=== PATIENT | female | born 1930 | race Caucasian/White ===

== ENCOUNTER 2017-02-13 13:47 | Inpatient (IN) | payer OTHER, BC ==
[~2017-02-13] VITALS: Ht 162.6 cm; Wt 59.0 kg
--- NOTE | ~2017-02-13 | EKG ---
[address] [employer] [place] [address] ELECTROCARDIOGRAM REPORT Name: KERVIN MANNING Room #: 426-P ADM IN M.R.#: [id number] Admission: 02/13/17 Attend Phys: Fei Wellington MD Discharge: Date of : 30 Report #: [id number] THIS REPORT FOR: //name// [facility] ED Test Date: 2017-02-13 Test Time: 14:10:13 Pat Name: KERVIN MANNING Department: Room: [facility] Gender: F Second Cutter: ELSA : 1930 Requested By: Rocío Tavarez Order Number: [id number] MD: Nathan Burrell Measurements Intervals [place] Rate: 89 P: 67 IA: 154 QRS: 43 QRSD: 93 T: 62 QT: 390 QTc: 475 Interpretive Statements Sinus rhythm Compared to ECG 03/25/2013 12:54:30 No significant changes Electronically Signed On 02-14-2017 9:22:23 CDT by Nathan Burrell [email or web address] <ELECTRONICALLY SIGNED> By: Nathan Burrell MD, [facility] 02/14/17 0922 D: [id number] Nathan Burrell MD, FACC /EPI
--- NOTE | ~2017-02-13 | 2DMMODE ---
[facility] [address] [place] [address] 2 D/M-MODE ECHOCARDIOGRAM Name: KERVIN MANNING Room #: 426-P [facility] IN .R.#: [id number] Admission: 02/13/17 Attend Phys: Fei Wellington MD Discharge: Date of : 30 Date of Service: 02/15/17 1235 Report #: [id number] THIS REPORT FOR: //name// APPROVED REPORT Study performed: 02/15/2017 10:44:23 EXAM: Comprehensive 2D, Doppler, and color-flow Echocardiogram Patient Location: Echo lab Room #: [facility] Blood Pressure: 137/58 mmHg HR: 78 bpm Rhythm: NSR Other Information Study Quality: Adequate Indications CVA/TIA Hx: HTN, HLP Echo Enhancing Agent Indication: Rule out Shunt Agent/Amount Used: Agitated Saline cc 2D Dimensions RVDd: 28.54 mm LVEF(%): 68.55 (>50%) IVSd: 10.01 (7-11mm) LVOT Diam: 18.04 (18-24mm) LVDd: 41.31 mm PWd: 8.99 (7-11mm) Ascending Ao: 30.27 (22-36mm) LVDs: 25.63 (25-40mm) Aortic Root: 31.32 mm Davis's LVEF: 68.55 % Volumes Left Atrial Volume (Systole) Single Plane 4CH: 20.15 mL Single Plane 2CH: 18.74 mL LA ESV Index: 16.00 mL/m2 Aortic Valve AoV Peak Ezio.: 1.35 m/s AO Peak Gr.: 7.25 mmHg LVOT Max P.97 mmHg [facility] [address] [place] [address] 2 D/M-MODE ECHOCARDIOGRAM Name: KERVIN MANNING Room #: 426-[facility] IN [facility].#: [id number] Admission: 02/13/17 Attend Phys: Fei Wellington MD Discharge: Date of : 30 Date of Service: 02/15/17 1235 Report #: [id number] LVOT Max V: 1.12 m/s Mitral Valve E/A Ratio: 0.8 MV Decel. Time: 203.36 ms MV E Max Ezio.: 0.84 m/s MV A Ezio.: 1.04 m/s MV PHT: 58.97 ms Pulmonary Valve PV Peak Ezio.: 0.75 m/s PV Peak Gr.: 2.23 mmHg Pulmonary Vein P Vein S: 66.9 m/s P Vein D: 43.2 m/s Tricuspid Valve TR Peak Ezio.: 2.46 m/s RAP Estimate: 5.00 mmHg TR Peak Gr.: 24.17 mmHg RVSP: 29.00 mmHg Left Ventricle The left ventricle is normal size. There is normal LV segmental wall motion. There is normal left ventricular wall thickness. Left ventricular systolic function is normal. LVEF is 55-60%. Grade I - abnormal relaxation pattern. Right Ventricle The right ventricle is normal size. The right ventricular systolic function is normal. Atria The left atrium size is normal. Injection of bubbles documented no interatrial shunt. The right atrium size is normal. Aortic Valve Aortic valve leaflets are mildly thickened. Trace aortic regurgitation. There is no aortic valvular stenosis. Mitral Valve Mitral valve leaflets are mildly thickened. Mild mitral regurgitation. Tricuspid Valve The tricuspid valve is normal in structure. There is mild tricuspid regurgitation. The right atrial pressure is estimated at 5 mmHg. Estimated PAP is 29mmHg. [facility] [address] [place] [address] 2 D/M-MODE ECHOCARDIOGRAM Name: KERVIN MANNING Room #: 426-P [facility] IN ..#: [id number] Admission: 02/13/17 Attend Phys: Fei Wellington MD Discharge: Date of : 30 Date of Service: 02/15/17 1235 Report #: [id number] Pulmonic Valve The pulmonary valve is normal in structure. Mild pulmonic regurgitation. Great Vessels The aortic root is normal in size. The ascending aorta is normal in size. IVC is normal in size and collapses >50% with inspiration. Pericardium There is no pericardial effusion. <Conclusion> The left ventricle is normal size. LVEF is 55-60%. Aortic valve leaflets are mildly thickened. Trace aortic regurgitation. Mitral valve leaflets are mildly thickened. Mild mitral regurgitation. The tricuspid valve is normal in structure. There is mild tricuspid regurgitation. The right atrial pressure is estimated at 5 mmHg. Estimated PAP is 29mmHg. The pulmonary valve is normal in structure. Mild pulmonic regurgitation. <ELECTRONICALLY SIGNED> By: Ranjit Vargas MD 02/15/17 1235 1235 1235 Ranjit Vargas MD /INF
[~2017-02-13 13:47] MED LIST: ACETAMINOPHEN325 M1 PO; HYDROCHLOROTH12.5 MG; HYDROCHLOROTHIA25 M1 PO; LIPITOR20 MG PO; LOTREL 10-20 M1 EACH; LOTREL 5-20 MG1 EACH PO; MECLIZINE HCL25 M1 PO; NORVASC 5 MG TAB5 MG PO; VITAMIN D 5050000 I1 PO
[2017-02-13 13:48] VITALS: BP 178/78
[2017-02-13] MEDS ORDERED: ALEVE220 MG PO (13:59)
[2017-02-13] MEDS ORDERED: BYSTOLIC10 MG PO (13:59)
[2017-02-13 14:13] LABS: ABSOLUTE NEUTROPHILS 5.6 thou/uL (1.4-8.2); BASOPHILS 0.4 % (0.0-2.0); EOSINOPHILS 1.8 % (0.0-3.0); HEMATOCRIT 43.2 % (37.0-47.0); LYMPHOCYTES 36.7 % (24.0-44.0); MCH 30.7 pg (26.0-34.0); MCHC 34.8 g/dL (28.0-37.0); MCV 88.3 fL (80.0-100.0); MONOCYTES 5.1 % (1.0-8.0); PLATELET COUNT 292 thou/uL (150-400); RDW 13.7 % (10.5-14.5); WBC 10.1 thou/uL (4.0-11.0)
[2017-02-13 14:16] LABS: MANUAL DIFF NO
[2017-02-13 14:22] LABS: CALCIUM 8.6 mg/dL (8.5-10.1); CREATININE 0.8 mg/dL (0.6-1.0); POTASSIUM 3.7 mmol/L (3.5-5.1)
[2017-02-13 14:31] LABS: URINE BILIRUBIN NEGATIVE (Negative); URINE BLOOD TRACE (Negative); URINE COLOR YELLOW; URINE GLUCOSE-RANDOM* NEGATIVE (Negative); URINE KETONES NEGATIVE (Negative); URINE NITRITE NEGATIVE (Negative); URINE PROTEIN (DIPSTICK) NEGATIVE (Negative); URINE UROBILINOGEN 0.2 E.U./dl (0.2-1.0)
[2017-02-13 20:00] VITALS: BP 132/52
[2017-02-13 20:08] LABS: CHOLESTEROL 202 mg/dL (<200); HDL CHOLESTEROL 64 mg/dL (>40); LDL CHOLESTEROL 118 mg/dL (<100); TC:HDL 3.2 Ratio (Not establshd); TRIGLYCERIDE 103 mg/dL (<150); VLDL 21 mg/dL (<40)
[2017-02-14] VITALS (7 sets, daily range): BP systolic 118–171; BP diastolic 38–98
[2017-02-14 05:44] LABS: HEMATOCRIT 37.9 % (37.0-47.0); HEMOGLOBIN 12.9 gm/dL (12.0-15.0); MCH 29.9 pg (26.0-34.0); MCV 88.1 fL (80.0-100.0); RBC 4.3 mil/uL (4.20-5.00); RDW 13.7 % (10.5-14.5); WBC 9.2 thou/uL (4.0-11.0)
[2017-02-14 05:54] LABS: CALCIUM 8.2 mg/dL (8.5-10.1); CREATININE 0.8 mg/dL (0.6-1.0); POTASSIUM 3.3 mmol/L (3.5-5.1)
[2017-02-14] MEDS ORDERED: HYDROCODONE-AP1 EAC6 PO (13:08)
[2017-02-15 03:48] VITALS: BP 158/59
[2017-02-15 07:07] VITALS: BP 137/58
[2017-02-15] MEDS ORDERED: MECLIZINE HCL25 M1 PO (15:57)
[2017-02-15 16:13] VITALS: BP 137/58
== END 2017-02-15 17:27 | disposition home or self-care (01) | DRG 149 ==
LOC: ER 13:47 → EROBS 15:40 → 4E 15:40
PROVIDERS: Emergency Medicine; Psychiatry & Neurology Neurology
DX: R42 Dizziness and giddiness (principal); I10 Essential (primary) hypertension; E78.5 Hyperlipidemia, unspecified; Z85.048 Personal history of other malignant neoplasm of rectum, rectosigmoid junction, and anus; Z85.038 Personal history of other malignant neoplasm of large intestine; Z79.899 Other long term (current) drug therapy
CPT/HCPCS: 10183